=== PATIENT | male | born 1985 | race American Indian/Alaskan Native ===

== ENCOUNTER 2024-12-09 17:13 | Emergency (ER) | payer MEDICAID ==
[~2024-12-09] VITALS: Ht 177.8 cm; Wt 101.8 kg
[2024-12-09 19:06] LABS: BASOPHILS % (AUTO) 0.5 % (0-1); EOSINOPHILS % (AUTO) 0.1 % (0-6); HEMATOCRIT 47.4 % (42.0-52.0); HEMOGLOBIN 15.7 g/dl (14.0-17.9); LYMPHOCYTES # (AUTO) 2.4 X10'3 (1.1-4.8); LYMPHOCYTES % (AUTO) 31.2 % (21-51); MEAN CORPUSCULAR HEMOGLOBIN 28.7 PG (27.0-31.0); MEAN CORPUSCULAR HGB CONC 33.2 g/dL (33.0-36.5); MEAN CORPUSCULAR VOLUME 86.6 FL (78-98); MEAN PLATELET VOLUME 7.8 FL (7.4-10.4); MONOCYTES # (AUTO) 0.5 X10'3 (0-0.9); MONOCYTES % (AUTO) 6.5 % (2-12); NEUTROPHILS # (AUTO) 4.8 X10'3 (1.8-7.7); NEUTROPHILS % (AUTO) 61.7 % (42-75); PLATELET COUNT 558 X10'3 (140-440); RED BLOOD COUNT 5.47 X10'6 (4.70-6.10); WHITE BLOOD COUNT 7.8 X10'3 (4.5-11.0)
[2024-12-09 19:24] LABS: ALANINE AMINOTRANSFERASE 22 U/L (12-78); ALBUMIN 3.7 G/DL (3.4-5.0); ALBUMIN/GLOBULIN RATIO 0.8 (1.1-1.5); ALKALINE PHOSPHATASE 94 IU/L (46-116); ANION GAP 15 (8-16); ASPARTATE AMINO TRANSFERASE 26 U/L (10-37); BILIRUBIN,TOTAL 1.3 MG/DL (0.1-1.0); BLOOD UREA NITROGEN 11 MG/DL (7-18); BUN/CREATININE RATIO 13.3 (10.0-20.0); CALCIUM 8.8 MG/DL (8.5-10.1); CHLORIDE 100 MMOL/L (99-107); CREATININE 0.83 MG/DL (0.60-1.10); GLUCOSE 149 MG/DL (70-104); LIPASE 78 U/L (16-77); POTASSIUM 3.5 MMOL/L (3.5-5.1); SODIUM 139 MMOL/L (135-145); TOTAL CARBON DIOXIDE 23.8 MMOL/L (24-32); TOTAL PROTEIN 8.4 G/DL (6.4-8.2); eCRCL 125 ML/MIN; eGFR > 90 ML/MIN
--- NOTE | 2024-12-09 19:30 | Physician Documentation ---
History of Present Illness ~ General Chief Complaint: Multiple Medical Complaints Stated Complaint: ABD PAIN Time Seen by MD: 18:44 History of Present Illness Initial Comments Patient is seen today with complaints of nausea and vomiting and recently coming off [facility] where he was drinking 10 or so wine coolers a day over the last five days. Patient states he normally does not drink daily and states he holds two jobs regularly. Patient denies any chest pain or shortness of breath and currently denies any significant abdominal pain. Patient states he usually takes 20 units of Lantus daily but has not had any insulin for five days and has not really eaten anything for five days other than drinking 10 wine coolers a day. He has no other concern or complaint at this time. Medication Reconciliation Allergies: Coded Allergies: ketoprofen (Unverified Allergy, Mild, rash, 12/09/24) Review of Systems Constitutional: Denies: chills, fever, weakness Eyes: Denies: pain, blurred vision ENT: Denies: ear pain, nose pain, throat pain, mouth pain Respiratory: Denies: cough, shortness of breath Cardiovascular: Denies: chest pain, palpitations Gastrointestinal: Denies: abdominal pain, nausea, vomiting Genitourinary: Denies: burning, dysuria Male Genitalia: Denies: penile discharge, testicular pain Neurological: Denies: headache, dizziness Musculoskeletal: Denies: pain, swelling Integumentary: Denies: rash, lesions Allergic/Immunologic: Denies: hives, itching Hematologic/Lymphatic: Denies: no symptoms reported Psychiatric: Denies: depression, anxiety Physical Exam Physical Exam Vital Signs: Temperature: 99.0, Source: Oral, Heart Rate: 114, Respiratory Rate: 16, BP: 170/121, Pulse Oximetry: 95, Weight: 101.800 Oxygen Flow Rate: 0 Physical Exam General: Awake and Alert, no acute distress. HEENT: Conjunctiva pink, Sclera clear, Mucus Membranes moist. Neck: Supple without masses and tenderness. Resp: Unlabored. Lungs clear to auscultation bilaterally. Heart: Regular Rate and rhythm, normal S1 and S2 without murmur, rub or gallop. Abdomen: Soft and non tender no organomegaly. Abdomen is soft and nontender and nondistended. Extremities: No cyanosis,clubbing or edema. Skin: Warm and Dry. Progress Results/Orders Results/Orders Completed Orders - CHECO CARRANZA PAC Insulin Glargine,Hum.Rec.Anlog (Lantus I (12/09/24 19:24) Vital Signs 12/09/24 17:15 Temp 99.0 Pulse 114 Resp 16 B/P (MAP) 170/121 Pulse Ox 95 O2 Flow Rate 0 Laboratory Tests Test 12/09/24 17:18 12/09/24 18:45 Glucometer 207 H White Blood Count 7.8 Red Blood Count 5.47 Hemoglobin 15.7 Hematocrit 47.4 Mean Corpuscular Volume 86.6 Mean Corpuscular Hemoglobin 28.7 Mean Corpuscular Hemoglobin Concent 33.2 Red Cell Distribution Width 15.0 H Platelet Count 558 H Mean Platelet Volume 7.8 Neutrophils (%) (Auto) 61.7 Lymphocytes (%) (Auto) 31.2 Monocytes (%) (Auto) 6.5 Eosinophils (%) (Auto) 0.1 Basophils (%) (Auto) 0.5 Neutrophils # (Auto) 4.8 Lymphocytes # (Auto) 2.4 Monocytes # (Auto) 0.5 Eosinophils # (Auto) 0.0 Basophils # (Auto) 0.0 CBC Comment Sodium Level 139 Potassium Level 3.5 Chloride Level 100 Carbon Dioxide Level 23.8 L Anion Gap 15 Blood Urea Nitrogen 11 Creatinine 0.83 Estimated GFR/1.73 m2 > 90 BUN/Creatinine Ratio 13.3 Glucose Level 149 H Calcium Level 8.8 Total Bilirubin 1.3 H Aspartate Amino Transf (AST/SGOT) 26 Alanine Aminotransferase (ALT/SGPT) 22 Alkaline Phosphatase 94 Total Protein 8.4 H Albumin 3.7 Globulin 4.7 H Albumin/Globulin Ratio 0.8 L Lipase 78 H Chemistry Comments Medical Decision Making Findings Patient is seen today with complaints of nausea and vomiting and recently coming off [facility] where he was drinking 10 or so wine coolers a day over the last five days. Patient states he normally does not drink daily and states he holds two jobs regularly. Patient denies any chest pain or shortness of breath and currently denies any significant abdominal pain. Patient states he usually takes 20 units of Lantus daily but has not had any insulin for five days and has not really eaten anything for five days other than drinking 10 wine coolers a day. He has no other concern or complaint at this time. Patient labs were largely unremarkable with only slightly elevated lipase but patient's history and physical exam findings are relatively benign without any history of DTs and patient alcohol use mainly only intense over the last five days. Patient was given dose of Lantus 20 mg subQ in the ED today. As well as Zofran 8 mg ODT. Prescription for Zofran sent to patient's pharmacy. Patient will continue using his Lantus 20 mg subQ as prescribed daily. Patient will abstain from drinking alcohol. Patient was offered admission however patient refused. Departure Disposition: HOME / SELF CARE / HOMELESS Impression: Primary Impression: Alcohol abuse Additional Impression: Nausea & vomiting Qualified Codes: R11.2 - Nausea with vomiting, unspecified Condition: Improved Discharge Instructions: Alcohol Abuse and Dependence Information, Adult Additional Instructions: Patient is seen today with complaints of nausea and vomiting and recently coming off [facility] where he was drinking 10 or so wine coolers a day over the last five days. Patient states he normally does not drink daily and states he holds two jobs regularly. Patient denies any chest pain or shortness of breath and currently denies any significant abdominal pain. Patient states he usually takes 20 units of Lantus daily but has not had any insulin for five days and has not really eaten anything for five days other than drinking 10 wine coolers a day. He has no other concern or complaint at this time. Referrals: NO PRIMARY CARE PROVIDER (PCP) Prescriptions ONDANSETRON ODT 4mg tablet (ONDANSETRON ODT) 4 Mg Tab.rapdis 8 MG PO BID, #14 TAB Prov: CHECO CARRANZA PAC 12/09/24 Additional Comment Additional Comment Patient was offered admission but refused. Signature Scribe Signature: No scribe Attestation: No scribe CHECO CARRANZA PAC Dec 09, 2024 19:30
[2024-12-09] MEDS ORDERED: ONDA-243 PO (21:03)
[2024-12-09] MEDS: ondansetron 4mg rapidly disintigrating tab PO STA (21:08)
[2024-12-09] MEDS: insulin glargine (Lantus) pen - multi-dose SQ STA (21:15)
[2024-12-09 21:39] VITALS: BP 137/94; PULSE 98; RESP 16; TEMP 98.5; O2SAT 98
== END 2024-12-09 21:40 | disposition home or self-care (01) ==
LOC: ER 17:14
DX: R11.2 Nausea with vomiting, unspecified (principal); F10.10 Alcohol abuse, uncomplicated; Z88.8 Allergy status to other drugs, medicaments and biological substances; Y90.9 Presence of alcohol in blood, level not specified
CPT/HCPCS: 36415; 80053; 82948; 83690; 85025; 96372; 99283; J1815